=== PATIENT | female | born 1965 | race Caucasian/White ===

== ENCOUNTER 2022-07-23 21:15 | Inpatient (IN) | payer OTHER, MEDICAID ==
[~2022-07-23] VITALS: Ht 175.3 cm; Wt 127.0 kg
[2022-07-23 21:15] VITALS: BP 116/75
--- NOTE | 2022-07-23 21:15 | NUR ---
[facility] TO BED #2
[2022-07-23 22:16] LABS: BASOPHILS % (AUTO) 0.7 % (0.0-2.0); EOSINOPHILS # (AUTO) 0.2 K/uL (0-0.4); EOSINOPHILS % (AUTO) 3.6 % (0.0-4.0); HEMOGLOBIN 16.1 g/dL (12.0-16.0); LYMPHOCYTES # (AUTO) 1.9 K/uL (2.5-16.5); LYMPHOCYTES % (AUTO) 35.1 % (20.5-51.1); MEAN CORPUSCULAR HEMOGLOBIN 34 pg (27-31); MEAN CORPUSCULAR HGB CONC 33 g/dL (33-37); MEAN CORPUSCULAR VOLUME 103.6 fL (80-94); MONOCYTES # (AUTO) 0.4 K/uL (0.8-1.0); MONOCYTES % (AUTO) 8.1 % (1.7-9.3); NEUTROPHILS # (AUTO) 2.8 K/uL (1.8-7.7); NEUTROPHILS % (AUTO) 52.5 % (42.2-75.2); PLATELET COUNT (AUTO) 205 K/uL (140-450); RED BLOOD CELL COUNT(AUTO) 4.73 MIL/uL (4.20-5.40); RED CELL DISTRIBUTION WIDTH 14.2 % (11.6-13.7); WHITE BLOOD COUNT (AUTO) 5.3 K/uL (4.8-10.8)
[2022-07-23 22:24] LABS: PROTHROMBIN TIME 12.6 secs (10.8-13.4)
[2022-07-23] MEDS ORDERED: fentaNYL citrate 0.05 MG/ML VIAL IVP ONE (22:30)
[2022-07-23] MEDS ORDERED: ONDANSETRON 4 MG/2 ML VIAL IVP ONE (22:30)
[2022-07-23] MEDS ORDERED: MECLIZINE 25 MG TAB PO ONE (22:30)
[2022-07-23 22:31] LABS: ALBUMIN 3.3 g/dL (3.4-5.0); ANION GAP 9.2 (8-16); ASPARTATE AMINOTRANSFERASE 27 U/L (15-37); CARBON DIOXIDE 32.7 mmol/L (21-32); CHLORIDE 103 mmol/L (98-107); CREATININE 0.9 mg/dL (0.6-1.3); GFR ARICAN-AMERICAN 84 mL/min (>90); GLUCOSE 95 mg/dL (74-106); POTASSIUM 3.9 mmol/L (3.5-5.1); SODIUM SERUM 141 mmol/L (136-145); TOTAL BILIRUBIN 0.4 mg/dL (0.0-1.0); UREA NITROGEN, BLOOD 12 mg/dL (7-18)
--- NOTE | 2022-07-23 22:50 | NUR ---
Patient resting in bed, A/Ox4, chest rise and fall symmetrical, no s/s of distress, on monitor.
--- NOTE | 2022-07-24 00:01 | NUR ---
Patient resting in bed, A/Ox4, chest rise and fall symmetrical, no s/s of distress, on monitor.
[2022-07-24] MEDS ORDERED: ACETAMINOPHEN 325 MG TAB PO ONE (02:30)
[2022-07-24] MEDS ORDERED: ACETAMINOPHEN 325 MG TAB ONE (02:31)
--- NOTE | 2022-07-24 02:50 | NUR ---
Patient resting in bed, A/Ox4, chest rise and fall symmetrical, no s/s of distress, on monitor.
--- NOTE | 2022-07-24 04:49 | NUR ---
Patient resting in bed, A/Ox4, chest rise and fall symmetrical, no c/o pain or s/s of distress, on monitor.
[2022-07-24] MEDS ORDERED: METO25TA PO (05:22)
[2022-07-24] MEDS ORDERED: APIX2.5 PO (05:22)
[2022-07-24] MEDS ORDERED: ALBUTEROL 0.083% 2.5 MG/3 ML NEBU INH PRN (06:05)
[2022-07-24] MEDS ORDERED: MORPHINE SULFATE 2 MG/ML SYR IVP PRN (06:05)
[2022-07-24] MEDS ORDERED: ONDANSETRON 4 MG/2 ML VIAL IVP PRN (06:05)
[2022-07-24] MEDS ORDERED: ACETAMINOPHEN 325 MG TAB PO PRN (06:05)
[2022-07-24] MEDS ORDERED: HYDROcodone/APAP 5/325 MG 1 TAB TAB PO PRN (06:05)
--- NOTE | 2022-07-24 06:33 | NUR ---
Patient resting in bed, A/Ox4, chest rise and fall symmetrical, no c/o pain or s/s of distress, on monitor.
--- NOTE | 2022-07-24 07:15 | NUR ---
Change of shift report given to AM shift Nurse Rome CERDA. AM shift Nurse Rome RN verbalized understannding of report, no further questions.
[2022-07-24 07:16] LABS: BASOPHILS % (AUTO) 0.5 % (0.0-2.0); EOSINOPHILS # (AUTO) 0.2 K/uL (0-0.4); EOSINOPHILS % (AUTO) 3.6 % (0.0-4.0); HEMATOCRIT 48.2 % (36-48); HEMOGLOBIN 15.7 g/dL (12.0-16.0); LYMPHOCYTES # (AUTO) 1.5 K/uL (2.5-16.5); LYMPHOCYTES % (AUTO) 29.6 % (20.5-51.1); MEAN CORPUSCULAR HEMOGLOBIN 34 pg (27-31); MEAN CORPUSCULAR HGB CONC 33 g/dL (33-37); MEAN CORPUSCULAR VOLUME 103.8 fL (80-94); MONOCYTES # (AUTO) 0.5 K/uL (0.8-1.0); MONOCYTES % (AUTO) 10.4 % (1.7-9.3); NEUTROPHILS # (AUTO) 2.8 K/uL (1.8-7.7); NEUTROPHILS % (AUTO) 55.9 % (42.2-75.2); PLATELET COUNT (AUTO) 199 K/uL (140-450); RED BLOOD CELL COUNT(AUTO) 4.64 MIL/uL (4.20-5.40); RED CELL DISTRIBUTION WIDTH 14.3 % (11.6-13.7)
[2022-07-24] MEDS ORDERED: cefTRIAXone 1,000 MG VIAL ONE (07:36)
--- NOTE | 2022-07-24 08:41 | NUR ---
PATIENT HAS BEEN SCREENED AND CATEGORIZED LOW NUTRITION RISK. PATIENT WILL BE SEEN WITHIN 7 DAYS OF ADMISSION. 07/31/[address]
--- NOTE | 2022-07-24 08:46 | NUR ---
Report given to ZAIDA Yin. VSS, GCS 15. Pt aware and agreeable to admission. Pt transfered via gurney with all belongings.
--- NOTE | 2022-07-24 08:59 | NUR ---
RECEIVE ER NURSE REPORT THAT PATIENT COME FROM HOME FOR NEAR SYNCOPE R/T DIZZY WHILE DOING CRAFT IN HOME. 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 MONITOR, , CARDIAC DIET. PIV AT L. HAND 20 SALINE LOCK, COCCYX OLD HEALING WOUND. VITAL WITHIN PATIENT'S BASELINE (T-P-R: 97.0-77-20, BP: 131/66, O2 SAT: 90% ON 3 LITER VIA NC), WILL CONTINUE TO MONITOR Addendum: 07/24/22 at 192 by Annamaria Velazco RN ENDORSE PATIENT IN STABLE CONDITION TO PM SHIFT NURSE AFTER PT SEE PATIENT AND HAVE EVAL DONE. NO IV GIVE DURING DAY SHIFT.
[2022-07-24 10:54] VITALS: BP 131/66
[2022-07-24] MEDS: AZITHROMYCIN 250 MG TAB PO SCH (11:04)
[2022-07-24] MEDS: METOPROLOL 25 MG TAB PO SCH ×2 (11:04→21:01)
[2022-07-24] MEDS: APIXABAN 2.5 MG TAB PO SCH ×2 (11:07→21:08)
[2022-07-24 12:00] VITALS: BP 108/57
[2022-07-24 16:00] VITALS: BP 129/80
--- NOTE | 2022-07-24 19:53 | NUR ---
PATIENT ASLEEP NO SOB NOTED. PATIENT IS ON 2LNC
[2022-07-24 20:00] VITALS: BP 136/86
--- NOTE | 2022-07-24 21:26 | NUR ---
1929 HAND-OFF REPORT RECEIVED FROM NELSON FOLLOWING BEDSIDE ROUNDS. RECEIVED DENYING DIZZINESS AT THIS TIME. 2099 HS MEDS GIVEN WITH HS SNACK. CONTINUES TO DENY DIZZINESS. NON-DIAPHORETIC. SATS 91-92% ON 3L/NC. STATES "THAT'S GOOD FOR ME." DISINFECTED PERSONAL PHONE. CONT TO MONITOR AND ASSIST. 2125 TRADED OUT BEDSIDE TABLE AT THIS TIME.
[2022-07-25] VITALS: BP 128/76
--- NOTE | 2022-07-25 | NUR ---
RESTING WELL WITHOUT C/O. VSS. LEAD CHECK AND ADJUSTMENT.
[2022-07-25 04:00] VITALS: BP 119/62
--- NOTE | 2022-07-25 04:52 | NUR ---
LEAD CHECK AND ADJUSTMENT. ROUGH SLEEPER, LEADS DISPLACED.
[2022-07-25 06:46] LABS: BASOPHILS % (AUTO) 0.4 % (0.0-2.0); EOSINOPHILS # (AUTO) 0.1 K/uL (0-0.4); EOSINOPHILS % (AUTO) 2.6 % (0.0-4.0); HEMATOCRIT 49.4 % (36-48); HEMOGLOBIN 15.7 g/dL (12.0-16.0); LYMPHOCYTES # (AUTO) 1.3 K/uL (2.5-16.5); LYMPHOCYTES % (AUTO) 22.4 % (20.5-51.1); MEAN CORPUSCULAR HEMOGLOBIN 34 pg (27-31); MEAN CORPUSCULAR HGB CONC 32 g/dL (33-37); MEAN CORPUSCULAR VOLUME 106.8 fL (80-94); MONOCYTES # (AUTO) 0.4 K/uL (0.8-1.0); MONOCYTES % (AUTO) 6.8 % (1.7-9.3); NEUTROPHILS # (AUTO) 3.9 K/uL (1.8-7.7); NEUTROPHILS % (AUTO) 67.8 % (42.2-75.2); PLATELET COUNT (AUTO) 195 K/uL (140-450); RED BLOOD CELL COUNT(AUTO) 4.62 MIL/uL (4.20-5.40); RED CELL DISTRIBUTION WIDTH 14.6 % (11.6-13.7); WHITE BLOOD COUNT (AUTO) 5.8 K/uL (4.8-10.8)
[2022-07-25 07:20] LABS: ALBUMIN 3.1 g/dL (3.4-5.0); ANION GAP 8.4 (8-16); CARBON DIOXIDE 34.5 mmol/L (21-32); CREATININE 0.9 mg/dL (0.6-1.3); PHOSPHORUS 3.4 mg/dL (2.5-4.9); POTASSIUM 4.9 mmol/L (3.5-5.1); TOTAL BILIRUBIN 0.5 mg/dL (0.0-1.0)
--- NOTE | 2022-07-25 07:30 | NUR ---
RECEIVED REPORT FROM PRICING INTERN NURSE FOR CONTINUITY OF CARE, POC DISCUSSED. PT SITTING UP IN BED ON 4L NC, NO SOB NOTED. CHEST RISING AND FALLING EVEN AND UNLABORED. MEDICATED WITH PRN TYLENOL FOR HEADACHE BY PRICING INTERN NURSE. ALL SAFETY MEASURES IN PLACE, CALL LIGHT WITHIN REACH.
--- NOTE | 2022-07-25 07:30 | NUR ---
HAND-OFF REPORT TO LINDA CERDA FOR CONTINUITY OF CARE FOLLOWING BEDSIDE ROUNDS. NO DIZZINESS EPISODE REPORTED DURING NIGHT. AT SHIFT CHANGE PT STATED HEADACHE 10/03. TYLENOL TABS 650 MG PO GIVEN. OTHERWISE STATED RESTED WELL. TOLERATING ROCEPHIN 1 GRAM INFUSION. RELINQUISHED CARE OF PT AT THIS TIME.
[2022-07-25 08:00] VITALS: BP 123/65
[2022-07-25] MEDS: AZITHROMYCIN 250 MG TAB PO SCH (08:52)
[2022-07-25] MEDS: METOPROLOL 25 MG TAB PO SCH (08:52)
[2022-07-25] MEDS: APIXABAN 2.5 MG TAB PO SCH (08:56)
--- NOTE | 2022-07-25 11:43 | NUR ---
FULL DISCHARGE EDUCATION PROVIDED TO PT, ALL QUESTIONS ANSWERED. PT STABLE. PT CALLED DAUGHTER FOR TRANSPORTATION AND TO BRING HOME OXYGEN. 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 ALL BELONGINGS COLLECTED AND IN PTS POSSESSION. PT ABLE TO DRESS HERSELF. CALL LIGHT WITHIN REACH.
--- NOTE | 2022-07-25 12:48 | NUR ---
PT STATES DAUGHTER IS UNABLE TO BRING OXYGEN TANK. INFORMED PT THE NEED FOR OXYGEN, HOWEVER PT STATES SHE CAN NOT PICK IT UP AND SHE WILL BE FINE FOR THE [address] HOME[address] STRESSED THE IMPORTANCE OF NEEDING IT, AND IF THERE WAS ANYWAY ANYONE COULD BRING IT. PT STATES NO AND SHE WANTS TO LEAVE. EDUCATED ON POTENTIAL COMPLICATIONS WITH LEAVING WITHOUT HER OXYGEN, PT STATES SHE UNDERSTANDS AND WILL TAKE THE RISK. CHARGE NURSE MADE AWARE.
--- NOTE | 2022-07-25 13:05 | NUR ---
PT HAS BEEN WHEELCHAIRED OUT IN STABLE CONDITION. IV REMOVED, ID BAND REMOVED, TELE MONITOR PLACED BACK IN MONITOR ROOM. PT IS STABLE. PT EDUCATED AGAIN ON IMPORTANCE OF KEEPING O2 ON, STATES SHE WILL PLACE IT BACK ON RIGHT WHEN SHE GETS HOME AND SHE WILL RETURN TO ED IF S/S WORSEN. ALL QUESTIONS ANSWERED, ALL BELONGINGS IN POSSESSION.
== END 2022-07-25 13:05 | disposition home or self-care (01) | DRG 111 ==
LOC: MED 21:15 → MMU 07-24 06:03 → MTU 07-24 07:41
PROVIDERS: ADMIT Internal Medicine; ATTEND Internal Medicine
DX: H81.22 Vestibular neuronitis, left ear (principal); E43 Unspecified severe protein-calorie malnutrition; J45.901 Unspecified asthma with (acute) exacerbation; I10 Essential (primary) hypertension; R09.02 Hypoxemia; Z68.41 Body mass index [BMI] 40.0-44.9, adult; Z20.822 Contact with and (suspected) exposure to COVID-19; Z86.711 Personal history of pulmonary embolism; Z90.710 Acquired absence of both cervix and uterus; Z85.841 Personal history of malignant neoplasm of brain
CPT/HCPCS: 36415; 70450; 71045; 80053; 83735; 83880; 84100; 84484; 85025; 85610; 87081; 93005; 96374; 97110; 97116; 97530; 99285; J0696; J2405; J3010; J7060; J8597